=== PATIENT | male | born 1985 | race Caucasian/White ===

== ENCOUNTER 2017-09-09 21:26 | Emergency (ER) | payer OTHER ==
[2017-09-10] MEDS: HYDROCODONE/APAP (10/325) TAB PO (02:08)
== END 2017-09-10 03:57 | disposition home or self-care (01) ==
LOC: FTE 09-10 03:57
DX: S63.252A Unspecified dislocation of right middle finger, initial encounter (principal); I10 Essential (primary) hypertension; F17.210 Nicotine dependence, cigarettes, uncomplicated; W18.39XA Other fall on same level, initial encounter; Y92.9 Unspecified place or not applicable
CPT/HCPCS: 28660; 73130-RT; 99283-25